=== PATIENT | female | born 1990 | race Caucasian/White ===

== ENCOUNTER 2017-05-28 18:07 | Emergency (ER) | payer BC ==
--- NOTE | ~2017-05-28 | ER ---
PATIENT'S NAME: ALEM FINCH [facility] AGE: 27 Y [address] ROOM: [place] [address] LOCATION: ED ADMIT DATE: 05/28/2017 ER/Outpatient Report DISCHARGE DATE: 05/28/2017 FAMILY PHYSICIAN: PHYSICIAN, NO ATTENDING PHYSICIAN: Agusto Evans Time of Patient's Arrival: 1807 hours. Time of Patient's Evaluation: 1825 hours. CHIEF COMPLAINT: Migraine headache. HISTORY OF PRESENT ILLNESS: This is a 27-year-old female who presents to the ER, who states she is having a migraine headache for the past 12 hours. She states that her pain is located on the left side of her forehead and is throbbing and sharp in nature. She states that she has tried some ibuprofen at home with minimal relief. She has had some photophobia and nausea with this as well. She has had no recent upper respiratory infection, no illnesses, no fever or chills. She has been dealing with a lot of stress lately. ALLERGIES: NO KNOWN ALLERGIES. MEDICATIONS: Loratadine. PAST MEDICAL HISTORY: Seasonal allergies. PAST SURGERIES: Tubes in her ears bilaterally. SOCIAL HISTORY: Denies smoking, drug, or alcohol use. REVIEW OF SYSTEMS: All systems were reviewed and were negative with the exception of those discussed in the HPI. PHYSICAL EXAMINATION: VITAL SIGNS: Height 5 feet 5 inches stated, weight 59 kg taken, blood pressure is 146/75, pulse 89, respirations 16, temperature 97.6 degrees tympanically, and saturations 96% on room air. Roberto Coma Score is 15. GENERAL: Alert, slightly anxious-appearing 27-year-old, in mild distress. PATIENT'S NAME: ALEM FINCH [facility] AGE: 27 Y [address] ROOM: [place] [address] LOCATION: ED ADMIT DATE: 05/28/2017 ER/Outpatient Report DISCHARGE DATE: 05/28/2017 FAMILY PHYSICIAN: PHYSICIAN, NO ATTENDING PHYSICIAN: Agusto Evans HEENT: Head: Normocephalic. Eyes: Pupils are equal and reactive to light. Ears: TMs display good light reflexes bilaterally. Nose: Turbinates pink with no drainage. Throat: No exudates or erythema. She does display moist mucous membranes. NECK: Supple. No lymphadenopathy. She has no nuchal rigidity. LUNGS: Clear to auscultation bilaterally. HEART: Regular rate and rhythm. EXTREMITIES: No clubbing or cyanosis. She has equal sensation and equal strength bilaterally in upper and lower extremities. NEUROLOGIC: Cranial nerves 2 through 12 grossly intact. Gait is steady without assistance. LABORATORY DATA AND X-RAYS: None were done. IMPRESSION: Migraine headache. ASSESSMENT AND PLAN: We did start an IV here in the emergency room and did give her a liter of IV fluids. We did give her Benadryl 50 mg IV along with Compazine 10 mg IV. The patient got a little jittery with the Compazine, but then rested comfortably her entire stay. Her migraine did improve greatly while she was here and she states that she would like to go home at this time. We will dismiss her to home. She needs to continue to push fluids, rest, monitor her symptoms closely. She should follow up with her primary care physician if needed or she may return to the emergency room if any symptoms worsen. The patient and patient's parents understand and agree with care. STEPHANIE LA PA-C FOR DO LUDWIG BURTON/yunier /[id number] d: t: 06/02/17 1236, OUTPATIENT REPORT
== END 2017-05-28 19:29 | disposition disaster alternative care site (69) ==
LOC: GMED 18:07
DX: G43.909 Migraine, unspecified, not intractable, without status migrainosus (principal); Z79.899 Other long term (current) drug therapy
CPT/HCPCS: J0780; J1200; J7030